=== PATIENT | female | born 1975 | race Caucasian/White ===

== ENCOUNTER 2016-07-19 05:32 | Observation (INO) | payer BC ==
[~2016-07-19] VITALS: Ht 167.6 cm; Wt 70.0 kg
[2016-07-19 05:37] VITALS: BP 136/71; PULSE 100; RESP 16; TEMP 97.9; O2SAT 99
[2016-07-19] MEDS ORDERED: VITA1000 PO (06:06)
[2016-07-19 06:34] LABS: AUTOMATED NEUTROPHIL # 6.9 TH/MM3 (1.8-7.7); BASOPHIL # 0.1 TH/MM3 (0-0.2); BASOPHIL % 0.7 % (0.0-2.0); EOSINOPHIL # 0.2 TH/MM3 (0-0.4); EOSINOPHIL % 1.7 % (0.0-4.0); HEMATOCRIT 36.1 % (35.0-46.0); HEMO FLAGS DIFF FINAL; LYMPH % 24.1 % (9.0-44.0); LYMPHOCYTE # 2.5 TH/MM3 (1.0-4.8); MEAN CELL VOLUME 85.4 FL (80.0-100.0); MEAN CORPUSCULAR HEMOGLOBIN 29.2 PG (27.0-34.0); MEAN CORPUSCULAR HGB CONC 34.2 % (32.0-36.0); MONO % 8.2 % (0.0-8.0); NEUT % 65.3 % (16.0-70.0); PLATELET COUNT 352 TH/MM3 (150-450); RED BLOOD COUNT 4.23 MIL/MM3 (4.00-5.30); RED CELL DISTRIBUTION WIDTH 13.8 % (11.6-17.2); WHITE BLOOD COUNT 10.5 TH/MM3 (4.0-11.0)
--- NOTE | 2016-07-19 06:44 | RADRPT ---
EXAM DATE/TIME: 07/19/2016 06:17 [place] COMPARISON: No previous studies available for comparison. INDICATIONS : Chest pain. MEDICAL HISTORY : None. SURGICAL HISTORY : None. ENCOUNTER: Initial ACUITY: 1 day PAIN SCORE: 4/10 LOCATION: Left chest FINDINGS: A single view of the chest demonstrates the lungs to be symmetrically aerated without evidence of mas s, infiltrate or effusion. The cardiomediastinal contours are unremarkable. Osseous structures are intact. CONCLUSION: No acute disease. Siddhartha Talbert MD on July 19, 2016 at 6:42 Board Certified Radiologist. This report was verified electronically.
[2016-07-19 06:53] LABS: ANION GAP 8 MEQ/L (5-15); BICARBONATE 27.3 MEQ/L (21.0-32.0); BLOOD UREA NITROGEN 14 MG/DL (7-18); CHLORIDE 103 MEQ/L (98-107); GLOMERULAR FILTRATION RATE 89 ML/MIN (>89); POTASSIUM 3.5 MEQ/L (3.5-5.1); SODIUM (NA) 138 MEQ/L (136-145)
[2016-07-19 06:54] LABS: CREATINE KINASE 79 U/L (26-192)
--- NOTE | 2016-07-19 07:19 | PD ---
HPI Chief Complaint: Chest Pain Time Seen by Provider: 07:08 Travel History International Travel<30 days: No Contact w/Intl Traveler<30days: No Traveled to known affect area: No History of Present Illness HPI Is a very pleasant 40-year-old female who presents today with complaints of intermittent chest pain 2 days. Patient reports it left sided chest and epigastric. She reports it 4-5 out of 10 on the pain scale. She denies any radiation. She denies any diaphoresis, nausea, shortness of breath. Family history is positive for grandfather and 80s who had cardiac stents otherwise negative. There is no tobacco history. The patient is visiting from [place] and states that when they drove down the took frequent stops every 2-3 hours to stretch the legs. She denies any calf or leg pain. [facility] Past Medical History Medical History: Denies Significant Hx Immunizations Current: Yes Tetanus Vaccination: Unknown Influenza Vaccination: Yes ?: Not Past Surgical History Section: Yes Other Surgery: Yes () Social History Alcohol Use: No Tobacco Use: No Substance Use: No Allergies-Medications (Allergen,Severity, Reaction): Coded Allergies: No Known Allergies (Unverified , 07/19/16) Reported Meds & Prescriptions Reported Meds & Active Scripts Active Reported Vitamin D-1000 (Cholecalciferol) 1,000 Unit Tab 1,000 Units PO DAILY Review of Systems Except as stated in HPI: all other systems reviewed are Neg General / Constitutional: No: Fever, Chills HENT: No: Headaches, Lightheadedness Cardiovascular: Positive: Chest Pain or Discomfort Respiratory: No: Cough, Shortness of Breath Gastrointestinal: No: Nausea, Vomiting Musculoskeletal: No: Weakness, Edema, Pain Neurologic: No: Weakness, Dizziness, Headache Physical Exam Narrative GENERAL: Well-nourished, well-developed patient. SKIN: Focused skin assessment warm/dry. HEAD: Normocephalic/atraumatic. EYES: No scleral icterus. No injection or drainage. NECK: Supple, trachea midline. No JVD or lymphadenopathy. CARDIOVASCULAR: Regular rate and rhythm without murmurs, gallops, or rubs. RESPIRATORY: Breath sounds equal bilaterally. No accessory muscle use. No Rales , rhonchi. GASTROINTESTINAL: Abdomen soft, non-tender, nondistended. MUSCULOSKELETAL: No cyanosis, or edema. No calf tenderness. NEUROLOGICAL: Awake and alert. Cranial nerves II through XII intact. Motor grossly within normal limits. Five out of 5 muscle strength in all muscle groups. Normal speech. Data Data Last Documented VS Vital Signs Date Time Temp Pulse Resp B/P Pulse Ox O2 Delivery O2 Flow Rate FiO2 07/19/16 07:20 Room Air 07/19/16 07:20 98.7 87 16 135/72 97 Orders Electrocardiogram (07/19/16 ) Complete Blood Count With Diff (07/19/16 05:57) Basic Metabolic Panel (Bmp) (07/19/16 05:57) Ckmb (Isoenzyme) Profile (07/19/16 05:57) Troponin I (07/19/16 05:57) Chest, Single Ap (07/19/16 05:57) Ed Urine Pregnancytest Poc (07/19/16 06:28) Urinalysis - C+S If Indicated (07/19/16 06:38) Admit Order (Ed Use Only) (07/19/16 08:34) Lorazepam Inj (Ativan Inj) (07/19/16 08:45) Labs Laboratory Tests Test 07/19/16 07/19/16 06:20 06:35 White Blood Count 10.5 TH/MM3 Red Blood Count 4.23 MIL/MM3 Hemoglobin 12.3 GM/DL Hematocrit 36.1 % Mean Corpuscular Volume 85.4 FL Mean Corpuscular Hemoglobin 29.2 PG Mean Corpuscular Hemoglobin 34.2 % Concent Red Cell Distribution Width 13.8 % Platelet Count 352 TH/MM3 Mean Platelet Volume 6.9 FL Neutrophils (%) (Auto) 65.3 % Lymphocytes (%) (Auto) 24.1 % Monocytes (%) (Auto) 8.2 % Eosinophils (%) (Auto) 1.7 % Basophils (%) (Auto) 0.7 % Neutrophils # (Auto) 6.9 TH/MM3 Lymphocytes # (Auto) 2.5 TH/MM3 Monocytes # (Auto) 0.9 TH/MM3 Eosinophils # (Auto) 0.2 TH/MM3 Basophils # (Auto) 0.1 TH/MM3 CBC Comment DIFF FINAL Differential Comment Sodium Level 138 MEQ/L Potassium Level 3.5 MEQ/L Chloride Level 103 MEQ/L Carbon Dioxide Level 27.3 MEQ/L Anion Gap 8 MEQ/L Blood Urea Nitrogen 14 MG/DL Creatinine 0.72 MG/DL Estimat Glomerular Filtration 89 ML/MIN Rate Random Glucose 100 MG/DL Calcium Level 8.6 MG/DL Total Creatine Kinase 79 U/L Troponin I LESS THAN 0.02 NG/ML Urine Color COLORLESS Urine Turbidity CLEAR Urine pH 6.5 Urine Specific [place] 1.001 Urine Protein NEG mg/dL Urine Glucose (UA) NEG mg/dL Urine Ketones NEG mg/dL Urine Occult Blood NEG Urine Nitrite NEG Urine Bilirubin NEG Urine Urobilinogen LESS THAN 2.0 MG/DL Urine Leukocyte Esterase NEG Urine WBC LESS THAN 1 /hpf Urine Squamous Epithelial 1 /hpf Cells Urine Bacteria FEW /hpf Microscopic Urinalysis Comment CULT NOT INDICATED MDM Medical Decision Making Medical Screen Exam Complete: Yes Emergency Medical Condition: Yes Differential Diagnosis ACS versus peptic ulcer disease versus pulmonary embolus Narrative Course 40-year-old female presents with complaints of chest pain. The patient has intermittent left sided chest pain and epigastric pain. There is no nausea, diaphoresis, shortness of breath. The patient has no cardiac history. EKG and cardiac enzymes show no evidence of acute abnormalities. I discussed with the patient that all the tests are reassuring however given the location of her pain , to be completely usually do a chest pain center rule out protocol. She is amenable to this plan. She is very anxious and I offered to give her some lorazepam to help calm her nerves. She is amenable to this as well. She'll be placed in the chest pain care protocol. Her next cardiac enzymes and EKG are due at 9:00 which is in 20 minutes. Diagnosis Primary Impression: Chest pain Additional Impression: Epigastric pain Christ Cannon MD Jul 19, 2016 07:19
[2016-07-19 07:20] VITALS: BP 135/72; PULSE 87; RESP 16; TEMP 98.7; O2SAT 97
[2016-07-19 07:37] LABS: BACTERIA, URINE FEW /hpf; BLOOD, URINE NEG (NEG); COMMENT (UR) CULT NOT INDICATED; CULTURE IF INDICATED CULT NOT INDICATED; GLUCOSE,URINE NEG (NEG); KETONE, URINE NEG (NEG); NITRITE,URINE NEG (NEG); PH, URINE 6.5 (5.0-8.5); SQUAMOUS EPITHELIAL CELL URINE 1 /hpf (0-5); URINE COLOR COLORLESS (YELLW/STRAW)
[2016-07-19] MEDS ORDERED: ASPIRIN 81 MG CHEW TAB CHEW ONE (08:45)
[2016-07-19] MEDS ORDERED: LORazepam 2 MG/ML VIAL IV PUSH ONE (08:45)
[2016-07-19 10:00] LABS: CREATINE KINASE 86 U/L (26-192)
[2016-07-19] MEDS ORDERED: PANTOPRAZOLE SOD 40 MG DELAYED RELEASE TAB PO SCH (11:30)
[2016-07-19] MEDS ORDERED: ACETAMINOPHEN/HYDROcodone 325 MG/7.5 MG TAB PO PRN (11:30)
[2016-07-19] MEDS ORDERED: ACETAMINOPHEN 500 MG CPLT PO PRN (11:30)
[2016-07-19] MEDS ORDERED: ONDANSETRON HCL 4 MG/2 ML VIAL IV PRN (11:30)
[2016-07-19] MEDS ORDERED: SODIUM CHLORIDE 0.9% FLUSH 5 ML FLUSH IVF PRN (11:30)
[2016-07-19] MEDS ORDERED: ASPIRIN 325 MG TAB PO SCH (11:30)
--- NOTE | 2016-07-19 12:26 | HHI.HP ---
HPI Primary Care Physician Non-Staff Chief Complaint Chest pain History of Present Illness This is a 40-year-old female that presents to ED via private vehicle while on vacation from [place]. She states that the discomfort has essentially been constant for a week. It began a few days prior to her and her family driving to this area on vacation. She has found certain movements seem to worsen the discomfort. She states she took an Aleve a couple days ago and at helped a lot which made her think that it may be another episode of costochondritis which she had in her 20s. Same time she had a stress test that was normal. She states she feels a lot better after getting medication in the ER. I reviewed her records she was given IV Ativan. She denies shortness red nausea or diaphoresis with her symptoms. Denies recent illnesses. Review of Systems General: Patient denies fevers, chills recent, and recent travel HEENT: Patient denies headache, sore throat, difficulty swallowing. Cardiovascular: Has the chest discomfort as mentioned above. Denies sensation of heart beating rapidly or irregularly. No syncope. Denies diaphoresis. Respiratory: Denies shortness of breath or inspirational chest discomfort. Denies coughing wheezing or hemoptysis. GI: Patient denies nausea, vomiting, diarrhea, abdominal pain, bloody stools. Musculoskeletal: Patient denies joint pain or edema. Denies calf pain or edema. Neurovascular: Patient denies numbness, tingling, weakness in extremities. Denies headache. Endocrine: Denies polyuria and polydipsia. Hematologic: Denies easy bruising. Skin: Denies rash or itching. Past Family Social History Allergies: Coded Allergies: No Known Allergies (Unverified , 07/19/16) Past Medical History History of costochondritis about 13 years ago. Denies hypertension, hyperlipidemia, diabetes, and CAD. She is a lifetime nonsmoker. Past Surgical History Noncontributory. Reported Medications Reported Meds & Active Scripts Active Reported Vitamin D-1000 (Cholecalciferol) 1,000 Unit Tab 1,000 Units PO DAILY Active Ordered Medications Current Medications Medications (Trade) Dose Ordered Sig/Kiley Route Start Time Stop Time Status Last Admin (NS Flush) 2 ml UNSCH PRN IVF 07/19/16 11:30 (NS Flush) 2 ml BID IVF 07/19/16 21:00 (Tylenol) 500 mg Q4H PRN PO 07/19/16 11:30 ([place] 7.5-325 Mg) 1 tab Q4H PRN PO 07/19/16 11:30 (Zofran Inj) 4 mg Q6H PRN IV 07/19/16 11:30 (Protonix) 40 mg DAILY PO 07/19/16 11:30 (Aspirin) 325 mg DAILY PO 07/19/16 11:30 Family History Denies family history of CAD. Social History Patient is a lifetime nonsmoker. She has occasional alcohol. Denies illicit drugs. She is with children. Physical Exam Vital Signs Vital Signs Date Time Temp Pulse Resp B/P Pulse Ox O2 Delivery O2 Flow Rate FiO2 07/19/16 07:20 Room Air 07/19/16 07:20 98.7 87 16 135/72 97 Room Air 07/19/16 05:37 97.9 100 16 136/71 99 Room Air Physical Exam GENERAL: This is a well-nourished, well-developed patient, in no apparent distress. Patient speaks in clear complete sentences. Patient is pleasant. Patient was examined with a female bottom painter present at the bedside. HEENT: Head is atraumatic and normocephalic. Neck is supple without lymphadenopathy and trachea is midline. No JVD or carotid bruits. CARDIOVASCULAR: Regular rate and rhythm without murmurs, gallops, or rubs. RESPIRATORY: Left chest wall is tender to palpate. This worsens the symptoms that she has been having. This also is worsened with twisting of the torso with also brings on a discomfort in her left upper back. Clear to auscultation. Breath sounds equal bilaterally. No wheezes, rales, or rhonchi. No use of accessory muscles. GASTROINTESTINAL: Abdomen is nontender, nondistended. Abdomen soft. No obvious pulsatile mass or bruit. No CVA tenderness. Strong femoral pulses bilaterally. Normal bowel sounds in all quadrants. MUSCULOSKELETAL: Patient is moving upper and lower extremities freely. No calf tenderness or edema, no Homans sign. Strong pulses in upper and lower extremities. NEUROLOGICAL: Patient is alert and oriented. Cranial nerves 2-12 are grossly intact. No focal deficits and speech is clear. SKIN: No rash and turgor is normal. Laboratory Laboratory Tests Test 07/19/16 07/19/16 07/19/16 06:20 06:35 09:16 White Blood Count 10.5 Red Blood Count 4.23 Hemoglobin 12.3 Hematocrit 36.1 Mean Corpuscular Volume 85.4 Mean Corpuscular Hemoglobin 29.2 Mean Corpuscular Hemoglobin 34.2 Concent Red Cell Distribution Width 13.8 Platelet Count 352 Mean Platelet Volume 6.9 Neutrophils (%) (Auto) 65.3 Lymphocytes (%) (Auto) 24.1 Monocytes (%) (Auto) 8.2 Eosinophils (%) (Auto) 1.7 Basophils (%) (Auto) 0.7 Neutrophils # (Auto) 6.9 Lymphocytes # (Auto) 2.5 Monocytes # (Auto) 0.9 Eosinophils # (Auto) 0.2 Basophils # (Auto) 0.1 CBC Comment DIFF FINAL Differential Comment Sodium Level 138 Potassium Level 3.5 Chloride Level 103 Carbon Dioxide Level 27.3 Anion Gap 8 Blood Urea Nitrogen 14 Creatinine 0.72 Estimat Glomerular Filtration 89 Rate Random Glucose 100 Calcium Level 8.6 Total Creatine Kinase 79 86 Troponin I LESS THAN 0.02 LESS THAN 0.02 Urine Color COLORLESS Urine Turbidity CLEAR Urine pH 6.5 Urine Specific [place] 1.001 Urine Protein NEG Urine Glucose (UA) NEG Urine Ketones NEG Urine Occult Blood NEG Urine Nitrite NEG Urine Bilirubin NEG Urine Urobilinogen LESS THAN 2.0 Urine Leukocyte Esterase NEG Urine WBC LESS THAN 1 Urine Squamous Epithelial 1 Cells Urine Bacteria FEW Microscopic Urinalysis Comment CULT NOT INDICATED Result Diagram: 07/19/16 0620 07/19/16 0620 Imaging Last 24 hours Impressions Chest X-Ray 07/19/16 0557 Signed Impressions: Service Date/Time: Tuesday, July 19, 2016 06:17 - CONCLUSION: No acute disease. Siddhartha Talbert MD Course First 2 EKGs have sinus rhythm without significant ST segment depressions or elevations. Assessment and Plan Assessment and Plan * Atypical chest pain: Patient will have serial cardiac enzymes and EKGs for ruling out purposes and will be evaluated by Dr. Andersen of cardiology in the chest pain center. Further plan will be determined after Dr. Andersen evaluates patient. Patient is feeling better after getting IV Ativan. Senthil Ortiz Jul 19, 2016 12:26
[2016-07-19 12:55] VITALS: BP 113/70; PULSE 92; RESP 16; TEMP 97.8; O2SAT 97
[2016-07-19 13:16] VITALS: BP 147/86
[2016-07-19 13:26] LABS: CREATINE KINASE 77 U/L (26-192)
--- NOTE | 2016-07-19 14:24 | HHI.DCPOC ---
Discharge Care Plan Diagnosis: (1) Chest pain, atypical Goals to Promote Your Health * To prevent worsening of your condition and complications * To maintain your health at the optimal level Directions to Meet Your Goals Take your medications as prescribed Follow your dietary instruction Follow activity as directed Keep your appointments as scheduled Take your immunizations and boosters as scheduled If your symptoms worsen call your PCP, if no PCP go to Urgent Care Center or Emergency Room Smoking is Dangerous to Your Health. Avoid second hand smoke Call the 24-hour hour crisis hotline for domestic abuse at Senthil Ortiz Jul 19, 2016 14:23
[2016-07-19] MEDS ORDERED: SODIUM CHLORIDE 0.9% FLUSH 5 ML FLUSH IVF SCH (21:00)
--- NOTE | 2016-07-19 21:28 | EKG ---
Date Performed: 07/19/2016 Time Performed: 05:49:14 PTAGE: 40 years EKG: Sinus rhythm POSSIBLE LEFT ATRIAL ENLARGEMENT BORDERLINE ECG NO PREVIOUS TRACING DOCTOR: Elodia Mckeon Interpretating Date/Time 07/19/2016 21:26:40
--- NOTE | 2016-07-19 22:38 | EKG ---
Date Performed: 07/19/2016 Time Performed: 12:34:24 PTAGE: 40 years EKG: Sinus rhythm POSSIBLE LEFT ATRIAL ENLARGEMENT BORDERLINE ECG PREVIOUS TRACING : 07/19/2016 09.14 Compared to prior tracing no significant change DOCTOR: Dinah Oviedo Interpretating Date/Time 07/19/2016 22:36:55
--- NOTE | 2016-07-19 22:43 | EKG ---
Date Performed: 07/19/2016 Time Performed: 09:14:27 PTAGE: 40 years EKG: Sinus rhythm POSSIBLE LEFT ATRIAL ENLARGEMENT BORDERLINE ECG PREVIOUS TRACING : 07/19/2016 05.49 Compared to prior tracing no significant change DOCTOR: Dinah Oviedo Interpretating Date/Time 07/19/2016 22:42:44
== END 2016-07-19 15:16 | disposition home or self-care (01) ==
LOC: NEPE 05:32 → NEDA 08:36 → NEPFCDU 12:54
PROVIDERS: ADMIT Internal Medicine Interventional Cardiology; ATTEND Internal Medicine Interventional Cardiology
DX: R07.89 Other chest pain (principal); R10.13 Epigastric pain
CPT/HCPCS: 71010; 80048; 81001; 82550; 84484; 84703; 85025; 93005; 99285; G0378; J2060